=== PATIENT | female | born 1945 | race Native Hawaiian/Other Pacific Islander ===

== ENCOUNTER 2017-09-22 19:05 | Outpatient (CLI) | payer MEDICARE, OTHER | END 2017-09-22 19:06 | disposition short-term general hospital (02) | LOC: EMS 19:05 | PROVIDERS: ATTEND Surgery | DX: M79.605 Pain in left leg (principal); M79.651 Pain in right thigh | CPT/HCPCS: A0425; A0429 ==

== ENCOUNTER 2019-06-04 23:51 | Outpatient (CLI) | payer MEDICARE, OTHER | END 2019-06-04 23:59 | disposition short-term general hospital (02) | LOC: EMS 23:51 | PROVIDERS: ATTEND Surgery | DX: R46.4 Slowness and poor responsiveness (principal); R29.810 Facial weakness; R53.1 Weakness; R11.10 Vomiting, unspecified | CPT/HCPCS: A0425; A0429; A0888 ==